=== PATIENT | female | born 1990 | race Caucasian/White ===

== ENCOUNTER → 2016-08-28 | Outpatient (CLI) | payer BC, OTHER ==
[~2016-08-28] MED LIST: COLACE100 MG PO; FERROUS SULFAT325 M2 PO; IBUPROFEN600 MG PO; NORCO 5-325 TA1 EACH PO
[2016-08-28 14:22] LABS: HEMOGLOBIN 10.8 gm/dl (12.3-15.3); RED BLOOD COUNT 3.51 M/UL (4.00-5.10); WHITE BLOOD COUNT 10.2 K/UL (4.5-11.0)
== END ==
LOC: GENOP 13:10
PROVIDERS: Obstetrics & Gynecology
DX: O82 Encounter for cesarean delivery without indication (principal)
CPT/HCPCS: 36415; 81001; 85025

== ENCOUNTER 2016-09-02 10:40 | Inpatient (IN) | payer BC, OTHER ==
[~2016-09-02] VITALS: Ht 165.1 cm; Wt 81.6 kg
[~2016-09-02 10:40] MED LIST changes: -FERROUS SULFAT325 M2 PO; -IBUPROFEN600 MG PO
[2016-09-03 03:06] LABS: HEMOGLOBIN 10.3 gm/dl (12.3-15.3)
[2016-09-04] MEDS ORDERED: FERROUS SULFAT325 M2 PO (10:03)
[2016-09-04] MEDS ORDERED: IBUPROFEN600 MG PO (10:04)
== END 2016-09-04 12:28 | disposition home or self-care (01) | DRG 766 ==
LOC: OB 10:40
PROVIDERS: ADMIT Obstetrics & Gynecology
PROC: 10D00Z1 Extraction of Products of Conception, Low, Open Approach (ICD-10-PCS; principal; 2016-09-02 12:29)
PROC: 3E0234Z Introduction of Serum, Toxoid and Vaccine into Muscle, Percutaneous Approach (ICD-10-PCS; 2016-09-03)
DX: O34.211 Maternal care for low transverse scar from previous cesarean delivery (principal); O36.0930 Maternal care for other rhesus isoimmunization, third trimester, not applicable or unspecified; N85.8 Other specified noninflammatory disorders of uterus; Z3A.39 39 weeks gestation of pregnancy; Z37.0 Single live birth; Z23 Encounter for immunization
CPT/HCPCS: 36415; 82800; 85014; 85018; 85461; 86850; 86900; 86901; 90715; C9113; J0690; J1885; J2274; J2370; J2590; J2765; J2790; J7120

== ENCOUNTER → 2020-05-24 | Outpatient (CLI) | payer BC ==
[~2020-05-24] MED LIST changes: +FERROUS SULFAT325 M2 PO; +IBUPROFEN600 MG PO; +KEFLEX CAP 500500 MG PO
== END ==
LOC: EMI 12:53
DX: M25.561 Pain in right knee (principal); M84.361A Stress fracture, right tibia, initial encounter for fracture; X58.XXXA Exposure to other specified factors, initial encounter
CPT/HCPCS: 73721